=== PATIENT | male | born 1955 | race Caucasian/White ===

== ENCOUNTER 2017-06-25 16:36 | Inpatient (IN) ==
[2017-06-25] MEDS ORDERED: SODIUM CHLORIDE 0.9% 1,000 ML IV STA (17:29)
[2017-06-25] MEDS ORDERED: ALBUTEROL/IPRATROPIUM 3 ML NEB RESP TX STA ×2 (17:29→18:54)
[2017-06-25 18:04] LABS: Basophils # 0.1 10*3/uL (0.0-0.2); Basophils % 0.2 % (0.0-0.8); Hematocrit 38.4 VOL% (42.0-52.0); Hemoglobin 13.6 GM/DL (14.0-18.0); Immature Granulocytes % 0.6 %; Immature Granulocytes Absolute 0.15 #; Lymphocytes # 1.3 10*3/uL (1.4-4.0); Lymphocytes % 4.8 % (21.2-54.2); Mean Corpuscular HGB Conc 35.4 GM/DL (32-36); Mean Corpuscular Hemoglobin 33 PG (27-34); Mean Platelet Volume 10.8 FL (9.6-12.0); Monocytes # 1.1 10*3/uL (0.11-0.8); Monocytes % 4.4 % (1.7-12.7); Neutrophils # 23.6 10*3/uL (1.4-7.4); Platelet Count 211 T/CUMM (130-400); Red Blood Count 4.13 MC/CUMM (3.8-5.5); Red Cell Distribution Width 13.1 % (9.3-17.3); White Blood Count 26.2 T/CUMM (4-12)
[2017-06-25 18:33] LABS: Calcium 8.7 MG/DL (8.5-10.1); Osmolality,Calculated 272.1 MOS/KG (273-304); Potassium 4.1 MMOL/L (3.5-5.1)
[2017-06-25] MEDS ORDERED: LEVOFLOXACIN INJ 750 MG in PREMIX 1 EACH IV STA (18:38)
[2017-06-25] MEDS ORDERED: LEVOFLOXACIN INJ 0 ML IV ONE (18:39)
[2017-06-25 18:50] LABS: Band Neutrophils 6 % (0-10); Burr Cells Few; Lymphocytes 6 % (20-55); Poikilocytosis Slight; Segmented Neutrophils 85 % (50-85); Total Cells Counted 100
[2017-06-25 18:51] LABS: Platelet Estimate Normal
[2017-06-25] MEDS ORDERED: ACETAMINOPHEN 325 MG TABLET PO PRN (19:44)
[2017-06-25] MEDS ORDERED: guaiFENesin/DM ER 600-30 MG TABLET PO PRN (19:44)
[2017-06-25] MEDS ORDERED: ONDANSETRON 4 MG/2 ML VIAL IV PRN (19:44)
[2017-06-25] MEDS ORDERED: ALBUTEROL/IPRATROPIUM 3 ML NEB RESP TX PRN (19:48)
[2017-06-25] MEDS: methylPREDNISolone SOD SUC 40 MG/1 ML VIAL IV SCH (21:26)
[2017-06-25] MEDS: DEXTROSE 5% NACL 0.9% 1,000 ML IV SCH (21:27)
[2017-06-25] MEDS: ENOXAPARIN 40 MG/0.4 ML SYRINGE SUBCUT SCH (21:27)
[2017-06-26] MEDS: methylPREDNISolone SOD SUC 40 MG/1 ML VIAL IV SCH ×3 (04:58→22:23)
[2017-06-26 06:23] LABS: Basophils % 0.1 % (0.0-0.8); Hematocrit 37.1 VOL% (42.0-52.0); Hemoglobin 12.7 GM/DL (14.0-18.0); Immature Granulocytes % 0.9 %; Immature Granulocytes Absolute 0.17 #; Lymphocytes # 0.4 10*3/uL (1.4-4.0); Lymphocytes % 1.9 % (21.2-54.2); Mean Corpuscular HGB Conc 34.2 GM/DL (32-36); Mean Corpuscular Hemoglobin 32 PG (27-34); Mean Corpuscular Volume 93.9 FL (87-102); Monocytes # 0.5 10*3/uL (0.11-0.8); Monocytes % 2.5 % (1.7-12.7); Neutrophils # 18.6 10*3/uL (1.4-7.4); Neutrophils % 94.6 % (38.7-73.9); Platelet Count 208 T/CUMM (130-400); Red Blood Count 3.95 MC/CUMM (3.8-5.5); White Blood Count 19.6 T/CUMM (4-12)
[2017-06-26 06:45] LABS: Band Neutrophils 4 % (0-10); Lymphocytes 1 % (20-55); Segmented Neutrophils 94 % (50-85); Total Cells Counted 100
[2017-06-26 06:46] LABS: Hypochromasia Slight; Platelet Estimate Adequate
[2017-06-26] MEDS: LEVOFLOXACIN INJ 750 MG in PREMIX 1 EACH IV SCH (06:50)
[2017-06-26 06:59] LABS: Albumin 2.9 G/DL (3.4-5.0); Bilirubin,Total 0.7 MG/DL (0.2-1.0); Calcium 8.4 MG/DL (8.5-10.1); Osmolality,Calculated 283.4 MOS/KG (273-304); Potassium 3.7 MMOL/L (3.5-5.1); Total Protein 6.5 G/DL (6.4-8.3)
[2017-06-26] MEDS: ASPIRIN CHEW 81 MG TABLET PO SCH (09:29)
[2017-06-26] MEDS: PANTOPRAZOLE 40 MG TABLET PO SCH (09:29)
[2017-06-26] MEDS ORDERED: ALBUTEROL 2.5 MG/3 ML NEB RESP TX PRN (10:44)
[2017-06-26] MEDS: MEROPENEM 1,000 MG in SODIUM CHLORIDE 0.9% 50 ML IV SCH (14:09)
[2017-06-26] MEDS: DEXTROSE 5% NACL 0.9% 1,000 ML IV SCH (14:12)
[2017-06-26] MEDS: ALBUTEROL/IPRATROPIUM 3 ML NEB RESP TX SCH ×2 (14:26→19:09)
[2017-06-26] MEDS: ENOXAPARIN 40 MG/0.4 ML SYRINGE SUBCUT SCH (22:24)
[2017-06-27] MEDS: ALBUTEROL/IPRATROPIUM 3 ML NEB RESP TX SCH ×4 (00:25→19:44)
[2017-06-27] MEDS: DEXTROSE 5% NACL 0.9% 1,000 ML IV SCH ×2 (02:54→17:46)
[2017-06-27] MEDS: methylPREDNISolone SOD SUC 40 MG/1 ML VIAL IV SCH ×3 (06:42→21:13)
[2017-06-27] MEDS: MEROPENEM 1,000 MG in SODIUM CHLORIDE 0.9% 50 ML IV SCH ×2 (08:40→21:11)
[2017-06-27] MEDS: METOPROLOL TARTRATE 50 MG TABLET PO SCH (08:41)
[2017-06-27] MEDS: MULTIVITAMIN (CENTRUM) TABLET PO SCH (08:41)
[2017-06-27] MEDS: ATORVASTATIN 20 MG TABLET PO SCH (08:41)
[2017-06-27] MEDS: PANTOPRAZOLE 40 MG TABLET PO SCH (08:41)
[2017-06-27] MEDS: ASPIRIN CHEW 81 MG TABLET PO SCH (08:41)
[2017-06-27] MEDS: STIOLTO RESPIMAT INH SCH (08:45)
[2017-06-27] MEDS ORDERED: ASPIRIN EC 81 MG TABLET PO SCH (09:00)
[2017-06-27] MEDS: LEVOFLOXACIN INJ 750 MG in PREMIX 1 EACH IV SCH (09:38)
[2017-06-27] MEDS: ENOXAPARIN 40 MG/0.4 ML SYRINGE SUBCUT SCH (21:16)
[2017-06-28] MEDS: ALBUTEROL/IPRATROPIUM 3 ML NEB RESP TX SCH ×4 (03:25→20:08)
[2017-06-28] MEDS: methylPREDNISolone SOD SUC 40 MG/1 ML VIAL IV SCH ×2 (05:37→16:28)
[2017-06-28] MEDS: DEXTROSE 5% NACL 0.9% 1,000 ML IV SCH (05:40)
[2017-06-28] MEDS: ASPIRIN CHEW 81 MG TABLET PO SCH (09:28)
[2017-06-28] MEDS: MULTIVITAMIN (CENTRUM) TABLET PO SCH (09:28)
[2017-06-28] MEDS: METOPROLOL TARTRATE 50 MG TABLET PO SCH (09:28)
[2017-06-28] MEDS: ATORVASTATIN 20 MG TABLET PO SCH (09:28)
[2017-06-28] MEDS: STIOLTO RESPIMAT INH SCH (09:29)
[2017-06-28] MEDS: MEROPENEM 1,000 MG in SODIUM CHLORIDE 0.9% 50 ML IV SCH ×2 (09:30→20:43)
[2017-06-28] MEDS: PANTOPRAZOLE 40 MG TABLET PO SCH (09:30)
[2017-06-28] MEDS: LEVOFLOXACIN INJ 750 MG in PREMIX 1 EACH IV SCH (11:54)
[2017-06-28] MEDS: ENOXAPARIN 40 MG/0.4 ML SYRINGE SUBCUT SCH (20:43)
[2017-06-29] MEDS: ALBUTEROL/IPRATROPIUM 3 ML NEB RESP TX SCH ×2 (00:49→07:55)
[2017-06-29] MEDS: methylPREDNISolone SOD SUC 40 MG/1 ML VIAL IV SCH ×2 (01:06→03:36)
[2017-06-29] MEDS: METOPROLOL TARTRATE 50 MG TABLET PO SCH (09:11)
[2017-06-29] MEDS: PANTOPRAZOLE 40 MG TABLET PO SCH (09:12)
[2017-06-29] MEDS: MEROPENEM 1,000 MG in SODIUM CHLORIDE 0.9% 50 ML IV SCH (09:12)
[2017-06-29] MEDS: MULTIVITAMIN (CENTRUM) TABLET PO SCH (09:12)
[2017-06-29] MEDS: ASPIRIN CHEW 81 MG TABLET PO SCH (09:12)
[2017-06-29] MEDS: ATORVASTATIN 20 MG TABLET PO SCH (09:12)
[2017-06-29] MEDS: STIOLTO RESPIMAT INH SCH (09:18)
[2017-06-29 12:01] VITALS: BP 141/72
== END 2017-06-29 13:00 | disposition home or self-care (01) | DRG 194 ==
LOC: N.ED 16:36 → N.EDINP 18:54 → N.2E 20:09
PROVIDERS: ADMIT Internal Medicine; ATTEND Internal Medicine